=== PATIENT | female | born 1950 | race African-American/Black ===

== ENCOUNTER 2018-08-03 01:55 | Inpatient (IN) | payer OTHER, MEDICARE ==
[~2018-08-03] VITALS: Ht 165.1 cm; Wt 70.1 kg
[2018-08-03] MEDS ORDERED: ONDANSETRON 2MG/ML, 2ML ONE (02:51)
[2018-08-03] MEDS ORDERED: KETOROLAC 30 MG/1 ML ONE (02:51)
[2018-08-03] MEDS ORDERED: MORPHINE SULFATE 4 MG/ML, 1ML ONE ×2 (02:51→03:12)
[2018-08-03] MEDS: MORPHINE SULFATE 4 MG/ML, 1ML IVPush PRN ×2 (02:58→03:12)
[2018-08-03] MEDS ORDERED: ONDANSETRON 2MG/ML, 2ML IVPush ONE (03:00)
[2018-08-03] MEDS ORDERED: SODIUM CHLORIDE FLUSH 10ML SYR IVF ONE (03:00)
[2018-08-03] MEDS ORDERED: SODIUM CHLORIDE 0.9% 1,000ML IVBOLUS ONE (03:00)
[2018-08-03] MEDS ORDERED: KETOROLAC 30 MG/1 ML IVPush ONE (03:00)
[2018-08-03 03:09] LABS: BASOPHILS # (AUTO) 0.01 x10^3/uL (0-0.1); BASOPHILS % (AUTO) 0 % (0-1); EOSINOPHILS # (AUTO) 0.05 x10^3/uL (0-0.4); EOSINOPHILS % (AUTO) 1 % (1-7); LYMPHOCYTES # (AUTO) 0.57 x10^3/uL (1-3.4); LYMPHOCYTES % (AUTO) 11 % (22-44); MD NO; MEAN CORPUSCULAR HEMOGLOBIN 25.4 pg (27.0-34.8); MEAN CORPUSCULAR HGB CONC 33.3 g/dL (32.4-35.8); MEAN CORPUSCULAR VOLUME 76.4 fL (80-100); MEAN PLATELET VOLUME 7.8 fL (7.4-10.4); MONOCYTES # (AUTO) 0.57 x10^3/uL (0.2-0.8); MONOCYTES % (AUTO) 11 % (2-9); NEUTROPHILS % (AUTO) 77 % (42-75); PLATELET COUNT 254 x10^3/uL (130-400); RED BLOOD COUNT 5.27 x10^6/uL (3.82-5.3); RED CELL DISTRIBUTION WIDTH 13.9 % (9.6-15.2)
[2018-08-03 03:10] LABS: HCT (SEDRATE) 39.8 % (34.6-47.8)
[2018-08-03 03:15] LABS: ALANINE AMINOTRANSFERASE 24 U/L (12-78); ALBUMIN 3.3 g/dL (3.4-5.0); ANION GAP 9 mmol/L (5-15); CALCIUM 8.8 mg/dL (8.5-10.1); CHLORIDE 107 mmol/L (98-107)
[2018-08-03 03:21] LABS: ALKALINE PHOSPHATASE 97 U/L (45-117); BILIRUBIN,TOTAL 0.5 mg/dL (0.2-1.0); CREATINE KINASE, TOTAL 125 U/L (26-192); TOTAL PROTEIN 7.7 g/dL (6.4-8.2)
[2018-08-03 03:49] LABS: CULTURE INDICATED? NO; MICROSCOPIC INDICATED
[2018-08-03 04:04] LABS: RAPID INFLUENZA A INCONCLUSIVE (Negative)
[2018-08-03 04:08] LABS: RAPID INFLUENZA B INCONCLUSIVE (Negative)
[2018-08-03] MEDS ORDERED: OSELTAMIVIR 75 MG CAPSULE PO ONE (04:30)
[2018-08-03 05:00] VITALS: BP 137/66
[2018-08-03] MEDS ORDERED: SODIUM CHLORIDE 0.9% 1,000 ML IV SCH (05:05)
[2018-08-03] MEDS ORDERED: PROMETHAZINE 25 MG/ML, 1ML IM PRN (05:30)
[2018-08-03] MEDS ORDERED: DOCUSATE 100 MG CAPSULE PO PRN (05:30)
[2018-08-03] MEDS ORDERED: LABETALOL 5MG/ML, 20ML IVPush PRN (05:30)
[2018-08-03] MEDS ORDERED: BISACODYL 10 MG SUPP PR PRN (05:30)
[2018-08-03] MEDS ORDERED: hydrALAzine 20 MG/ML, 1ML IVPush PRN (05:30)
[2018-08-03] MEDS ORDERED: POLYETHYLENE GLYCOL 17 GM PACKET PO PRN (05:30)
[2018-08-03] MEDS ORDERED: ONDANSETRON 2MG/ML, 2ML IVPush PRN (05:30)
[2018-08-03] MEDS ORDERED: ONDANSETRON ODT 4 MG PO PRN (05:30)
[2018-08-03] MEDS: HEPARIN 5,000 UNITS/ML, 1ML SQ SCH ×3 (05:55→21:10)
[2018-08-03 06:17] LABS: HEMOGLOBIN A1C 6.4 % (4.2-6.3)
[2018-08-03 06:22] LABS: FREE T4 (FREE THYROXINE) 1.28 ng/dL (0.76-1.46); THYROID STIMULATING HORMONE 2.91 mIU/L (0.358-3.740)
[2018-08-03 07:20] VITALS: BP 135/70
[2018-08-03] MEDS: LOSARTAN 25MG TABLET PO SCH (09:08)
[2018-08-03] MEDS: AMLODIPINE 5 MG TABLET PO SCH (09:08)
[2018-08-03] MEDS: OSELTAMIVIR 75 MG CAPSULE PO SCH ×2 (10:00→21:08)
[2018-08-03] MEDS ORDERED: ERGOCALCIFEROL 50,000 UNIT CAPSULE PO SCH (12:00)
[2018-08-03 13:48] VITALS: BP 123/64
[2018-08-03 19:29] VITALS: BP 139/83
[2018-08-04 00:25] VITALS: BP 128/64
[2018-08-04] MEDS: HEPARIN 5,000 UNITS/ML, 1ML SQ SCH ×3 (05:47→22:07)
[2018-08-04 05:54] LABS: ALBUMIN 2.6 g/dL (3.4-5.0); ANION GAP 8 mmol/L (5-15); CALCIUM 8.2 mg/dL (8.5-10.1); CHLORIDE 109 mmol/L (98-107)
[2018-08-04 05:57] LABS: ALANINE AMINOTRANSFERASE 19 U/L (12-78); ALKALINE PHOSPHATASE 77 U/L (45-117); BASOPHILS # (AUTO) 0.01 x10^3/uL (0-0.1); BASOPHILS % (AUTO) 0 % (0-1); BILIRUBIN,TOTAL 0.7 mg/dL (0.2-1.0); CHOL/HDL RATIO 1.8; CHOLESTEROL, TOTAL 131 mg/dL (140-239); EOSINOPHILS # (AUTO) 0.01 x10^3/uL (0-0.4); EOSINOPHILS % (AUTO) 0 % (1-7); HDL CHOL % 56 % (28-40); HDL CHOLESTEROL (DIRECT) 74 mg/dL (40-60); LDL CHOLESTEROL,CALCULATED 46 mg/dL (54-169); LDL/HDL RATIO 0.6 (0.5-3.0); LYMPHOCYTES # (AUTO) 0.93 x10^3/uL (1-3.4); LYMPHOCYTES % (AUTO) 21 % (22-44); MD NO; MEAN CORPUSCULAR HEMOGLOBIN 25.4 pg (27.0-34.8); MEAN CORPUSCULAR HGB CONC 33.1 g/dL (32.4-35.8); MEAN CORPUSCULAR VOLUME 76.8 fL (80-100); MEAN PLATELET VOLUME 8.5 fL (7.4-10.4); MONOCYTES # (AUTO) 0.65 x10^3/uL (0.2-0.8); MONOCYTES % (AUTO) 14 % (2-9); NEUTROPHILS # (AUTO) 2.92 x10^3/uL (1.8-6.8); NEUTROPHILS % (AUTO) 65 % (42-75); PLATELET COUNT 212 x10^3/uL (130-400); RED BLOOD COUNT 4.45 x10^6/uL (3.82-5.3); TOTAL PROTEIN 6.5 g/dL (6.4-8.2); TRIGLYCERIDES 54 mg/dL (50-200); VLDL CHOLESTEROL 11 mg/dL (0-25)
[2018-08-04 07:14] VITALS: BP 124/71
[2018-08-04] MEDS: AMLODIPINE 5 MG TABLET PO SCH (09:09)
[2018-08-04] MEDS: LOSARTAN 25MG TABLET PO SCH (09:09)
[2018-08-04] MEDS: OSELTAMIVIR 75 MG CAPSULE PO SCH ×2 (09:09→22:07)
[2018-08-04] MEDS: IBUPROFEN 600 MG TABLET PO PRN ×2 (09:20→16:42)
[2018-08-04 14:07] VITALS: BP 109/66
[2018-08-04 20:45] VITALS: BP 112/69
[2018-08-05 00:43] VITALS: BP 130/69
[2018-08-05] MEDS: HEPARIN 5,000 UNITS/ML, 1ML SQ SCH ×2 (05:43→13:30)
[2018-08-05 06:38] VITALS: BP 126/64
[2018-08-05] MEDS: LOSARTAN 25MG TABLET PO SCH (07:58)
[2018-08-05] MEDS: AMLODIPINE 5 MG TABLET PO SCH (07:58)
[2018-08-05] MEDS: OSELTAMIVIR 75 MG CAPSULE PO SCH (07:58)
[2018-08-05] MEDS: IBUPROFEN 600 MG TABLET PO PRN (08:04)
[2018-08-05] MEDS ORDERED: LOSA25TA2 PO (12:31)
[2018-08-05] MEDS ORDERED: AMLO5TAB7 PO (12:31)
[2018-08-05] MEDS ORDERED: ERGO500017 PO (12:31)
[2018-08-05] MEDS ORDERED: IBUP-1221 PO (12:31)
[2018-08-05] MEDS ORDERED: OSEL75CA PO (12:31)
[2018-08-05 13:46] VITALS: BP 120/63
[2018-08-07 16:11] LABS: ANA SCREEN POSITIVE (Negative)
[2018-08-07 16:17] LABS: ANTI-NUCLEAR ANTIBODY PATTERN HOMOGENOUS
== END 2018-08-05 14:15 | disposition home or self-care (01) | DRG 193 ==
LOC: ED 03:07 → EDIP 04:25 → 3NW 04:50
PROVIDERS: ADMIT Internal Medicine; ATTEND Internal Medicine
DX: J10.1 Influenza due to other identified influenza virus with other respiratory manifestations (principal); R53.2 Functional quadriplegia; E44.0 Moderate protein-calorie malnutrition; R70.0 Elevated erythrocyte sedimentation rate; G89.29 Other chronic pain; E87.6 Hypokalemia; I10 Essential (primary) hypertension; E55.9 Vitamin D deficiency, unspecified; E86.0 Dehydration; Z90.710 Acquired absence of both cervix and uterus; Z88.2 Allergy status to sulfonamides; Z88.0 Allergy status to penicillin; Z68.25 Body mass index [BMI] 25.0-25.9, adult
CPT/HCPCS: 36415; 71045; 80053; 80061; 81001; 82306; 82550; 82607; 83036; 83605; 83735; 84145; 84439; 84443; 85025; 85651; 86038; 86039; 86140; 86308; 86430; 86431; 87040; 87081; 87400; 87880; 93005; 96361; 96374; 96375; 99285; G0378; J1644; J1885; J2405; J7030